=== PATIENT | male | born 1995 | race Hispanic/Latino ===

== ENCOUNTER 2016-06-02 14:44 | Emergency (ER) | payer OTHER ==
[2016-06-02] MEDS ORDERED: KETOROLAC 30 MG/ML VIAL (J1885) As Ordered ONE (19:01)
[2016-06-02] MEDS ORDERED: CLINDAMYCIN INJ 900MG/6ML VIAL As Ordered ONE (19:01)
[2016-06-02 19:15] LABS: BASO % 0.3 % (0.0-1.0); EOS # 0.1 K/mm3 (0.0-0.50); EOS % 1.4 % (0.0-3.0); LARGE UNSTAINED CELL # 0.2 K/mm3 (0.0-0.4); LARGE UNSTAINED CELL % 2.2 % (0.0-4.0); LYMPH # 1.7 K/mm3 (1.5-6.5); LYMPH % 18.6 % (24.0-44.0); MEAN CORPUSCULAR HEMOGLOBIN 32.6 pg (27.0-33.0); MEAN CORPUSCULAR HGB CONC 35.5 g/dl (32.0-36.5); MONO # 0.6 K/mm3 (0.0-0.8); MONO % 6.1 % (0.0-5.0); NEUTROPHILS # 6.5 K/mm3 (1.8-7.7); NEUTROPHILS % 71.3 % (36.0-66.0); PLATELET COUNT, AUTOMATED 224 k/mm3 (150-450); RED CELL DISTRIBUTION WIDTH 11.7 % (11.5-14.5); WHITE BLOOD COUNT 9.1 K/mm3 (4.0-10.0)
[2016-06-02 19:30] LABS: ANION GAP 6 MEQ/L (8-16); BLOOD UREA NITROGEN 8 MG/DL (7-18); CALCIUM LEVEL 9.2 MG/DL (8.5-10.1); CARBON DIOXIDE LEVEL 32 MEQ/L (21-32); CHLORIDE LEVEL 100 MEQ/L (98-107); CREATININE FOR GFR 1.12 MG/DL (0.70-1.30); GLOMERULAR FILTRATION RATE > 60.0 (>60); GLUCOSE, FASTING 108 MG/DL (70-105); POTASSIUM SERUM 3.4 MEQ/L (3.5-5.1); SODIUM LEVEL 138 MEQ/L (136-145)
[2016-06-02] MEDS ORDERED: ISOVUE-370 76% 100ML VIAL (Q9967) As Ordered ONE (19:46)
[2016-06-02 19:48] LABS: ERYTHROCYTE SEDIMENTATION RATE 44 mm/hr (0-15)
--- NOTE | 2016-06-02 21:20 | REPUSA ---
HISTORY: Left-sided swelling after wisdom tooth removal. TECHNIQUE : 100 mL Isovue 370 IV contrast was administered.. CT FACE MANDIBLE with contrast: Soft Tissues: There is diffuse soft tissue swelling of the left facial tissues extending from the lev el of the zygomatic arch to the submandibular region. There is soft tissue emphysema versus packing m aterial along the left mandibular gumline. However, there is no discrete fluid collection to suggest abscess. Nasal Bone: Intact. Sinuses and mastoids: Clear. Orbits: No retrobulbar trauma. Maxilla: There has been removal of the left and right maxillary 3rd molars. There is incidental note made of fracture of the alveolar ridge on the left. Mandible: There has been removal of the left and right mandibular 3rd molars.. IMPRESSION: Postsurgical changes of bilateral maxillary and bilateral mandibular wisdom tooth removal . Diffuse soft tissue swelling and hyperemia of the left facial tissues extending from the zygomatic arch to the submandibular region, consistent with cellulitis. No evidence of contained abscess.
--- NOTE | 2016-06-02 21:44 | EDDOCDS ---
Nurse's Notes [facility] Name: Arias Renae Age: 21 yrs Sex: Male : 1995 Arrival Date: 06/02/2016 Time: 14:44 Bed I4 / M4 Private MD: Other - Complete Info On Cds Diagnosis: Cellulitis of face-LEFT SIDED Presentation: 06/02 15:22 Presenting complaint: Patient states: had my wisdom teeth removed on Saturday, swelling [facility] went down on right side but not on left, seen in office (dr. matthews at [facility]) yesterday and they put in something supposedly to drain it and it is getting worse so I came here because that's what they said to do if it didn't get better. Adult Sepsis Screening: The patient does not have new or worsening altered mentation. Patient's respiratory rate is less than 22. Systolic blood pressure is greater than 100. Patient has a qSOFA score of 0- Negative Sepsis Screen. Suicide/Homicide risk assessment- the patient denies having any suicidal and/or homicidal ideations and does not present with any other emotional, behavioral or mental health complaints. 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 Transition of care: patient was not received from another setting of care. 15:22 Acuity: RAFAEL Level [address] [facility] 15:22 Method Of Arrival: Walkin/Carried/Asstd [facility] Triage Assessment: 15:27 General: Appears in no apparent distress, uncomfortable, Behavior is appropriate for [facility] age, cooperative, pleasant. Pain: Location: face Pain currently is 7 out of 10 on a pain scale. HIV screening NA for this visit Offered previously. active duty . Respiratory: Airway is patent Respiratory effort is even, unlabored, Respiratory pattern is regular, symmetrical. GI: Reports can't eat due to pain. Derm: Skin is pink, warm & dry. Swollen area noted on head. Historical: - Allergies: no known allergies; - Home Meds: 1. penicillin 500 mg four times a day (Last dose: 06/02/2016 12:00) 2. unknown antibiotic starts with a "D" 500 mg every 4 hours (Last dose: 06/02/2016 12:00) 3. Percocet 5-325 mg Oral tab 1 tab every 6 hours (Last dose: 06/01/2016) - PMHx: none; - PSHx: Appendectomy; - Social history: Smoking status: Patient uses tobacco products, light tobacco smoker. No barriers to communication noted. - Family history: Not pertinent. - : The pt / caregiver states he / she is not on anticoagulants. Home medication list is obtained from the patient. - Exposure Risk Screening:: None identified. Screenin:21 Screening information is obtained from the patient. Fall risk: No risks identified. kr3 Assistance ADL's: requires no assistance with activities of daily living. Abuse/DV Screen: The patient / caregiver reports he/she is: not in a situation that causes fear, pain or injury. Nutritional screening: No deficits noted. Advance Directives: Currently, there is no health care proxy. home support is adequate. Assessment: 18:20 Reassessment: Patient appears in no apparent distress at this time. Pain: Location: kr3 face. Neurological: Level of Consciousness is awake, alert. EENT: Denies difficulty swallowing. Respiratory: Respiratory effort is even, unlabored. Derm: Swollen area noted on head. 19:03 General: Appears in no apparent distress, Behavior is appropriate for age, cooperative. dsf Pain: Location: left side of face Pain currently is 6 out of 10 on a pain scale. Neurological: Level of Consciousness is awake, alert. Cardiovascular: Capillary refill < 3 seconds. Respiratory: Airway is patent Respiratory effort is even, unlabored, Respiratory pattern is regular, symmetrical. Derm: Skin is pink, warm & dry. Swollen area noted on left cheek and left jaw and under left eye. 19:12 General: Pt medicated per orders. Call chapman within reach. Will continue to monitor. ld5 19:59 General: Pt returned from CT. Pt tolerated well. Will continue to monitor. ld5 20:38 General: Appears in no apparent distress, comfortable, Behavior is appropriate for age, cjh cooperative, quiet on stretcher, IV infusing without difficulty, denies needs, awaiting results. 21:20 General: Appears in no apparent distress, comfortable, Behavior is appropriate for age, cjh cooperative, patient resting quietly, states 'feeling much better' denies needs. 21:41 General: Appears in no apparent distress, Behavior is cooperative. Neurological: Level ld5 of Consciousness is awake, alert. Respiratory: Airway is patent Respiratory effort is even, unlabored. Vital Signs: 14:47 BP 131 / 70; Pulse 90; Resp 18 S; Temp 100.4(O); Pulse Ox 97% on R/A; Weight 76.2 kg gr2 (R); Height 5 ft. 6 in. (167.64 cm) (R); Pain 8/10; 18:19 BP 151 / 78; Pulse 76; Resp 16; Pulse Ox 98% ; Pain 5/10; kr3 18:49 Temp 99.6(O); jf3 21:26 BP 125 / 66; Pulse 65; Resp 18; Temp 98.8(TE); Pulse Ox 97% on R/A; Pain 0/10; kb5 14:47 Body Mass Index 27.12 (76.20 kg, 167.64 cm) gr2 Vitals: 14:47 Log In Time: June 02, 2016 at 14:47. gr2 ED Course: 14:46 Patient visited by Mayela Forde. gr2 14:46 Other - Complete Info On Cds is Private Physician. gr2 14:46 Patient moved to Waiting gr2 14:48 Patient visited by Mayela Forde. gr2 14:48 Patient moved to Pre RCE gr2 15:24 Triage Initiated cj 18:18 Patient moved to Triage 3 sew 18:21 The patient / caregiver is instructed regarding the plan of care and ED course. Patient manuel has correct armband on for positive identification. 18:36 Roula Prince PA-C is [facility]. dt4 18:36 Alfa Zuleta MD is Attending Physician. dt4 18:36 Patient visited by Roula Prince PA-C. dt4 18:52 Patient moved to I4 / M4 kr3 19:02 CRP Sent. dsf 19:02 Sed Rate Sent. dsf 19:02 Basic Metabolic Profile Sent. dsf 19:02 CBC with Diff Sent. dsf 19:03 Patient visited by Lolita Madera RN. dsf 19:03 Inserted saline lock: 18 gauge in right antecubital area The patient tolerated the dsf procedure well. 19:12 Patient visited by Stephanie Malone,CRISTINA. ld5 19:[address] dsf 19:58 Patient moved to I4 / M4 ld5 20:00 Patient visited by Stephanie Malone,CRISTINA. ld5 20:38 Patient visited by Xin Jurado RN. [facility] 21:20 Patient visited by Xin Jurado RN. [facility] 21:26 Patient visited by Niraj Iniguez PCA. kb5 21:32 Orion Rico is Referral Physician. dt4 21:41 Discontinued lock intact, bleeding controlled, pressure dressing applied, No ld5 redness/swelling at site. No procedures done that require assistance. 21:43 Patient visited by Stephanie Malone RN. ld5 Administered Medications: 19:11 Drug: ketorolac 30 mg [ketorolac 30 mg/mL (1 mL) injection solution (1 mL)] Route: IVP; ld5 Site: right antecubital; 21:42 Follow up: Response: Pain is resolved ld5 19:11 Drug: Clindamycin 900 mg [clindamycin 150 mg/mL injection solution] Route: IVPB; ld5 Infused Over: 30 mins; Site: right antecubital; 19:59 Follow up: IV Status: Completed infusion; IV Intake: 50ml ld5 19:11 Drug: NS 0.9% 500 ml [sodium chloride 0.9 % intravenous solution] Route: IV; Rate: ld5 bolus; Site: right antecubital; 21:42 Follow up: IV Status: Completed infusion; IV Intake: 500ml ld5 Intake: 19:59 IV: 50.00ml; Total: 50.00ml. ld5 21:42 IV: 500.00ml; Total: 550.00ml. ld5 Order Results: Lab Order: CBC with Diff; SPEC'M 06/02/16 19:01 Test: WHITE BLOOD COUNT; Value: 9.1; Range: 4.0-10.0; Units: K/mm3; Status: F Test: RED BLOOD COUNT; Value: 4.51; Range: 4.30-6.10; Units: M/mm3; Status: F Test: HEMOGLOBIN; Value: 14.7; Range: 14.0-18.0; Units: g/dl; Status: F Test: HEMATOCRIT; Value: 41.4; Range: 42.0-52.0; Abnormal: Below low normal; Units: %; Status: F Test: MEAN CORPUSCULAR VOLUME; Value: 92.0; Range: 80.0-96.0; Units: fl; Status: F Test: MEAN CORPUSCULAR HEMOGLOBIN; Value: 32.6; Range: 27.0-33.0; Units: pg; Status: F Test: MEAN CORPUSCULAR HGB CONC; Value: 35.5; Range: 32.0-36.5; Units: g/dl; Status: F Test: RED CELL DISTRIBUTION WIDTH; Value: 11.7; Range: 11.5-14.5; Units: %; Status: F Test: PLATELET COUNT, AUTOMATED; Value: 224; Range: 150-450; Units: k/mm3; Status: F Test: NEUTROPHILS %; Value: 71.3; Range: 36.0-66.0; Abnormal: Above high normal; Units: %; Status: F Test: LYMPH %; Value: 18.6; Range: 24.0-44.0; Abnormal: Below low normal; Units: %; Status: F Test: MONO %; Value: 6.1; Range: 0.0-5.0; Abnormal: Above high normal; Units: %; Status: F Test: EOS %; Value: 1.4; Range: 0.0-3.0; Units: %; Status: F Test: BASO %; Value: 0.3; Range: 0.0-1.0; Units: %; Status: F Test: LARGE UNSTAINED CELL %; Value: 2.2; Range: 0.0-4.0; Units: %; Status: F Test: NEUTROPHILS #; Value: 6.5; Range: 1.8-7.7; Units: K/mm3; Status: F Test: LYMPH #; Value: 1.7; Range: 1.5-6.5; Units: K/mm3; Status: F Test: MONO #; Value: 0.6; Range: 0.0-0.8; Units: K/mm3; Status: F Test: EOS #; Value: 0.1; Range: 0.0-0.50; Units: K/mm3; Status: F Test: BASO #; Value: 0.0; Range: 0.0-0.2; Units: K/mm3; Status: F Test: LARGE UNSTAINED CELL #; Value: 0.2; Range: 0.0-0.4; Units: K/mm3; Status: F Lab Order: Basic Metabolic Profile; SPEC'M 06/02/16 19:01 Test: GLUCOSE, FASTING; Value: 108; Range: 70-105; Abnormal: Above high normal; Units: MG/DL; Status: F Test: BLOOD UREA NITROGEN; Value: 8; Range: 7-18; Units: MG/DL; Status: F Test: CREATININE FOR GFR; Value: 1.12; Range: 0.70-1.30; Units: MG/DL; Status: F Test: GLOMERULAR FILTRATION RATE; Value: > 60.0; Range: >60; Status: F Test: SODIUM LEVEL; Value: 138; Range: 136-145; Units: MEQ/L; Status: F Test: POTASSIUM SERUM; Value: 3.4; Range: 3.5-5.1; Abnormal: Below low normal; Units: MEQ/L; Status: F Test: CHLORIDE LEVEL; Value: 100; Range: 98-107; Units: MEQ/L; Status: F Test: CARBON DIOXIDE LEVEL; Value: 32; Range: 21-32; Units: MEQ/L; Status: F Test: ANION GAP; Value: 6; Range: 8-16; Abnormal: Below low normal; Units: MEQ/L; Status: F Test: CALCIUM LEVEL; Value: 9.2; Range: 8.5-10.1; Units: MG/DL; Status: F Test Note: ; Units are mL/min/1.73 m2 Chronic Kidney Disease Staging per NKF: Stage I & II GFR >=60 Normal to Mildly Decreased Stage III GFR 30-59 Moderately Decreased Stage IV GFR 15-29 Severely Decreased Stage V GFR <15 Very Little GFR Left ESRD GFR <15 on ELDERLY CAREGIVER Lab Order: Sed Rate; SPEC'M 06/02/16 19:01 Test: ERYTHROCYTE SEDIMENTATION RATE; Value: 44; Range: 0-15; Abnormal: Above high normal; Units: mm/hr; Status: F Lab Order: CRP; SPEC'M 06/02/16 19:01 Test: C REACTIVE PROTEIN QUANTITATIV; Value: 5.95; Range: 0.00-0.30; Abnormal: Above high normal; Units: MG/DL; Status: F Outcome: 21:33 Discharge ordered by Provider. dt 21:41 Discharge Assessment: Patient awake, alert and oriented x 3. No cognitive and/or ld5 functional deficits noted. Patient verbalized understanding of disposition instructions. patient administered narcotics - no. The following High Risk Discharge criteria are identified: None. Discharged to home ambulatory. Condition: stable. Discharge instructions given to patient, Instructed on discharge instructions, follow up and referral plans. medication usage, no driving heavy equipment, Demonstrated understanding of instructions, medications, Pt was receptive of discharge instructions/ teaching. Prescriptions given X 2. CT Study completed. Property :Personal belongings accompany Pt. 21:43 Patient left the ED. ld5 Signatures: Damaris Weems,RN RN kr3 Niraj Iniguez, MARKETING PROGRAM MANAGER MARKETING PROGRAM MANAGER kb5 Stephanie MaloneRN RN ld5 Lolita Madera,RN RN Xin Hawley,RN RN [facility] Aaliyah Dsouza Gainslee gr2 Roula Prince PA-C PASaadia dt4 Jean Keys,RN RN jf3 MTDThomas
--- NOTE | 2016-06-02 21:44 | EDDOCDS ---
Physician Documentation [facility] Name: Arias Renae Age: 21 yrs Sex: Male : 1995 Arrival Date: 06/02/2016 Time: 14:44 Bed I4 / M4 Private MD: Other - Complete Info On Cds Disposition: 06/02/16 21:33 Discharged to Home/Self Care. Impression: Cellulitis of face - LEFT SIDED. - Condition is Stable. - Discharge Instructions: Cellulitis. - Prescriptions for Clindamycin HCl 300 mg Oral Capsule - take 1 capsule by ORAL route every 6 hours; 40 capsule. [place] 5- 325 mg Oral Tablet - take 1 tablet by ORAL route every 6 hours As needed MDD: 4 tabs; 15 tablet. - Medication Reconciliation, Local Pharmacy Hours form. - Follow up: Emergency Department; When: As needed; Reason: Worsening of conditions. Follow up: Orion Rico; When: Call to arrange an appointment; Reason: Wound/Symptom Recheck, Recheck today's complaints, Continuance of care. - Problem is new. - Symptoms have improved. Historical: - Allergies: no known allergies; - Home Meds: 1. penicillin 500 mg four times a day (Last dose: 06/02/2016 12:00) 2. unknown antibiotic starts with a "D" 500 mg every 4 hours (Last dose: 06/02/2016 12:00) 3. Percocet 5-325 mg Oral tab 1 tab every 6 hours (Last dose: 06/01/2016) - PMHx: none; - PSHx: Appendectomy; - Social history: Smoking status: Patient uses tobacco products, light tobacco smoker. No barriers to communication noted. - Family history: Not pertinent. - : The pt / caregiver states he / she is not on anticoagulants. Home medication list is obtained from the patient. - Exposure Risk Screening:: None identified. Vital Signs: 06/02 14:47 BP 131 / 70; Pulse 90; Resp 18 S; Temp 100.4(O); Pulse Ox 97% on R/A; Weight 76.2 kg / gr2 167.99 lbs (R); Height 5 ft. 6 in. (167.64 cm) (R); Pain 8/10; 18:19 BP 151 / 78; Pulse 76; Resp 16; Pulse Ox 98% ; Pain 5/10; kr3 18:49 Temp 99.6(O); jf3 21:26 BP 125 / 66; Pulse 65; Resp 18; Temp 98.8(TE); Pulse Ox 97% on R/A; Pain 0/10; kb5 14:47 Body Mass Index 27.12 (76.20 kg, 167.64 cm) gr2 MDM: 18:54 IV Saline Lock ordered. dt4 18:54 ketorolac 30 mg IVP once ordered. dt4 18:54 Clindamycin 900 mg IVPB once over 30 mins; dilute in 50mL of NS or D5W ordered. dt4 18:54 NS 0.9% 500 ml IV at bolus once ordered. dt4 18:55 CT Maxillofacial with contrast Ordered. EDMS 18:55 CBC with Diff Ordered. EDMS 18:55 Basic Metabolic Profile Ordered. EDMS 18:55 Sed Rate Ordered. EDMS 18:55 CRP Ordered. EDMS Administered Medications: 19:11 Drug: ketorolac 30 mg [ketorolac 30 mg/mL (1 mL) injection solution (1 mL)] Route: IVP; ld5 Site: right antecubital; 21:42 Follow up: Response: Pain is resolved ld5 19:11 Drug: Clindamycin 900 mg [clindamycin 150 mg/mL injection solution] Route: IVPB; ld5 Infused Over: 30 mins; Site: right antecubital; 19:59 Follow up: IV Status: Completed infusion; IV Intake: 50ml ld5 19:11 Drug: NS 0.9% 500 ml [sodium chloride 0.9 % intravenous solution] Route: IV; Rate: ld5 bolus; Site: right antecubital; 21:42 Follow up: IV Status: Completed infusion; IV Intake: 500ml ld5 Signatures: Dispatcher [employer] EDMS Stephanie Malone RN RN ld5 Xin Jurado RN RN [facility] Roula Prince PA-C PA-C dt4 MTDD
--- NOTE | 2016-06-04 22:43 | EDDOCDS ---
Physician Documentation [facility] Name: Arias Renae Age: 21 yrs Sex: Male : 1995 Arrival Date: 06/02/2016 Time: 14:44 Bed I4 / M4 Private MD: Other - Complete Info On Cds Disposition: 06/02/16 21:33 Discharged to Home/Self Care. Impression: Cellulitis of face - LEFT SIDED. - Condition is Stable. - Discharge Instructions: Cellulitis. - Prescriptions for Clindamycin HCl 300 mg Oral Capsule - take 1 capsule by ORAL route every 6 hours; 40 capsule. [place] 5- 325 mg Oral Tablet - take 1 tablet by ORAL route every 6 hours As needed MDD: 4 tabs; 15 tablet. - Medication Reconciliation, Local Pharmacy Hours form. - Follow up: Emergency Department; When: As needed; Reason: Worsening of conditions. Follow up: Orion Rico; When: Call to arrange an appointment; Reason: Wound/Symptom Recheck, Recheck today's complaints, Continuance of care. - Problem is new. - Symptoms have improved. Historical: - Allergies: no known allergies; - Home Meds: 1. penicillin 500 mg four times a day (Last dose: 06/02/2016 12:00) 2. unknown antibiotic starts with a "D" 500 mg every 4 hours (Last dose: 06/02/2016 12:00) 3. Percocet 5-325 mg Oral tab 1 tab every 6 hours (Last dose: 06/01/2016) - PMHx: none; - PSHx: Appendectomy; - Social history: Smoking status: Patient uses tobacco products, light tobacco smoker. No barriers to communication noted. - Family history: Not pertinent. - : The pt / caregiver states he / she is not on anticoagulants. Home medication list is obtained from the patient. - Exposure Risk Screening:: None identified. Vital Signs: 06/02 14:47 BP 131 / 70; Pulse 90; Resp 18 S; Temp 100.4(O); Pulse Ox 97% on R/A; Weight 76.2 kg / gr2 167.99 lbs (R); Height 5 ft. 6 in. (167.64 cm) (R); Pain 8/10; 18:19 BP 151 / 78; Pulse 76; Resp 16; Pulse Ox 98% ; Pain 5/10; kr3 18:49 Temp 99.6(O); jf3 21:26 BP 125 / 66; Pulse 65; Resp 18; Temp 98.8(TE); Pulse Ox 97% on R/A; Pain 0/10; kb5 14:47 Body Mass Index 27.12 (76.20 kg, 167.64 cm) gr2 MDM: 18:54 IV Saline Lock ordered. dt4 18:54 ketorolac 30 mg IVP once ordered. dt4 18:54 Clindamycin 900 mg IVPB once over 30 mins; dilute in 50mL of NS or D5W ordered. dt4 18:54 NS 0.9% 500 ml IV at bolus once ordered. dt4 18:55 CT Maxillofacial with contrast Ordered. EDMS 18:55 CBC with Diff Ordered. EDMS 18:55 Basic Metabolic Profile Ordered. EDMS 18:55 Sed Rate Ordered. EDMS 18:55 CRP Ordered. EDMS 21:49 [place] [place] was scanned into [employer] and attached to record. [facility] 21:49 Financial registration complete. gjb 06/03 15:38 Radiology Report was scanned into [employer] and attached to record. kf3 16:18 Radiology Report was scanned into [employer] and attached to record. kf3 17:01 T-Sheet-- Draft Copy was scanned into [employer] and attached to record. klr Administered Medications: 06/02 19:11 Drug: ketorolac 30 mg [ketorolac 30 mg/mL (1 mL) injection solution (1 mL)] Route: IVP; ld5 Site: right antecubital; 21:42 Follow up: Response: Pain is resolved ld5 19:11 Drug: Clindamycin 900 mg [clindamycin 150 mg/mL injection solution] Route: IVPB; ld5 Infused Over: 30 mins; Site: right antecubital; 19:59 Follow up: IV Status: Completed infusion; IV Intake: 50ml ld5 19:11 Drug: NS 0.9% 500 ml [sodium chloride 0.9 % intravenous solution] Route: IV; Rate: ld5 bolus; Site: right antecubital; 21:42 Follow up: IV Status: Completed infusion; IV Intake: 500ml ld5 Signatures: Dispatcher Med[employer] EDMS Cameron Fontenot, Reg Reg kf3 Stephanie Malone,RN RN ld5 Xin JuradoRN RN [facility] Roula Prince PA-C PASaadia dt4 Angelica Stallings Kathie klr The chart was reviewed and I authenticate all verbal orders and agree with the evaluation and treatment provided.Attachments: 21:49 [facility] Payment Agreement latasha 17:01 T-Sheet-- Draft Copy klr Chart Complete MTDD
--- NOTE | 2016-06-04 22:43 | EDDOCDS ---
Physician Documentation [facility] Name: Arias Renae Age: 21 yrs Sex: Male : 1995 Arrival Date: 06/02/2016 Time: 14:44 Bed I4 / M4 Private MD: Other - Complete Info On Cds Disposition: 06/02/16 21:33 Discharged to Home/Self Care. Impression: Cellulitis of face - LEFT SIDED. - Condition is Stable. - Discharge Instructions: Cellulitis. - Prescriptions for Clindamycin HCl 300 mg Oral Capsule - take 1 capsule by ORAL route every 6 hours; 40 capsule. [place] 5- 325 mg Oral Tablet - take 1 tablet by ORAL route every 6 hours As needed MDD: 4 tabs; 15 tablet. - Medication Reconciliation, Local Pharmacy Hours form. - Follow up: Emergency Department; When: As needed; Reason: Worsening of conditions. Follow up: Orion Rico; When: Call to arrange an appointment; Reason: Wound/Symptom Recheck, Recheck today's complaints, Continuance of care. - Problem is new. - Symptoms have improved. Historical: - Allergies: no known allergies; - Home Meds: 1. penicillin 500 mg four times a day (Last dose: 06/02/2016 12:00) 2. unknown antibiotic starts with a "D" 500 mg every 4 hours (Last dose: 06/02/2016 12:00) 3. Percocet 5-325 mg Oral tab 1 tab every 6 hours (Last dose: 06/01/2016) - PMHx: none; - PSHx: Appendectomy; - Social history: Smoking status: Patient uses tobacco products, light tobacco smoker. No barriers to communication noted. - Family history: Not pertinent. - : The pt / caregiver states he / she is not on anticoagulants. Home medication list is obtained from the patient. - Exposure Risk Screening:: None identified. Vital Signs: 06/02 14:47 BP 131 / 70; Pulse 90; Resp 18 S; Temp 100.4(O); Pulse Ox 97% on R/A; Weight 76.2 kg / gr2 167.99 lbs (R); Height 5 ft. 6 in. (167.64 cm) (R); Pain 8/10; 18:19 BP 151 / 78; Pulse 76; Resp 16; Pulse Ox 98% ; Pain 5/10; kr3 18:49 Temp 99.6(O); jf3 21:26 BP 125 / 66; Pulse 65; Resp 18; Temp 98.8(TE); Pulse Ox 97% on R/A; Pain 0/10; kb5 14:47 Body Mass Index 27.12 (76.20 kg, 167.64 cm) gr2 MDM: 18:54 IV Saline Lock ordered. dt4 18:54 ketorolac 30 mg IVP once ordered. dt4 18:54 Clindamycin 900 mg IVPB once over 30 mins; dilute in 50mL of NS or D5W ordered. dt4 18:54 NS 0.9% 500 ml IV at bolus once ordered. dt4 18:55 CT Maxillofacial with contrast Ordered. EDMS 18:55 CBC with Diff Ordered. EDMS 18:55 Basic Metabolic Profile Ordered. EDMS 18:55 Sed Rate Ordered. EDMS 18:55 CRP Ordered. EDMS 21:49 [facility] [place] Payment Agreement was scanned into [employer] and attached to record. [facility] 21:49 Financial registration complete. gjb 06/03 15:38 Radiology Report was scanned into [employer] and attached to record. kf3 16:18 Radiology Report was scanned into [employer] and attached to record. kf3 17:01 T-Sheet-- Draft Copy was scanned into [employer] and attached to record. klr Administered Medications: 06/02 19:11 Drug: ketorolac 30 mg [ketorolac 30 mg/mL (1 mL) injection solution (1 mL)] Route: IVP; ld5 Site: right antecubital; 21:42 Follow up: Response: Pain is resolved ld5 19:11 Drug: Clindamycin 900 mg [clindamycin 150 mg/mL injection solution] Route: IVPB; ld5 Infused Over: 30 mins; Site: right antecubital; 19:59 Follow up: IV Status: Completed infusion; IV Intake: 50ml ld5 19:11 Drug: NS 0.9% 500 ml [sodium chloride 0.9 % intravenous solution] Route: IV; Rate: ld5 bolus; Site: right antecubital; 21:42 Follow up: IV Status: Completed infusion; IV Intake: 500ml ld5 Signatures: Dispatcher [employer] EDMS Cameron Fontenot, Reg Reg kf3 Stephanie Mlaone,RN RN ld5 Xin JuradoRN RN [facility] Roula Prince PA-C PASaadia dt4 Angelica Stallings Kathie klr The chart was reviewed and I authenticate all verbal orders and agree with the evaluation and treatment provided.Attachments: 21:49 [facility] Payment Agreement latasha 17:01 T-Sheet-- Draft Copy klr Chart Complete MTDD
--- NOTE | 2016-06-04 22:43 | EDDOCDS ---
Nurse's Notes [facility] Name: Arias Renae Age: 21 yrs Sex: Male : 1995 Arrival Date: 06/02/2016 Time: 14:44 Bed I4 / M4 Private MD: Other - Complete Info On Cds Diagnosis: Cellulitis of face-LEFT SIDED Presentation: 06/02 15:22 Presenting complaint: Patient states: had my wisdom teeth removed on Saturday, swelling [facility] went down on right side but not on left, seen in office (dr. matthews at [facility]) yesterday and they put in something supposedly to drain it and it is getting worse so I came here because that's what they said to do if it didn't get better. Adult Sepsis Screening: The patient does not have new or worsening altered mentation. Patient's respiratory rate is less than 22. Systolic blood pressure is greater than 100. Patient has a qSOFA score of 0- Negative Sepsis Screen. Suicide/Homicide risk assessment- the patient denies having any suicidal and/or homicidal ideations and does not present with any other emotional, behavioral or mental health complaints. 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 Transition of care: patient was not received from another setting of care. 15:22 Acuity: RAFAEL Level 3 [facility] 15:22 Method Of Arrival: Walkin/Carried/Asstd [facility] Triage Assessment: 15:27 General: Appears in no apparent distress, uncomfortable, Behavior is appropriate for [facility] age, cooperative, pleasant. Pain: Location: face Pain currently is 7 out of 10 on a pain scale. HIV screening NA for this visit Offered previously. active duty . Respiratory: Airway is patent Respiratory effort is even, unlabored, Respiratory pattern is regular, symmetrical. GI: Reports can't eat due to pain. Derm: Skin is pink, warm & dry. Swollen area noted on head. Historical: - Allergies: no known allergies; - Home Meds: 1. penicillin 500 mg four times a day (Last dose: 06/02/2016 12:00) 2. unknown antibiotic starts with a "D" 500 mg every 4 hours (Last dose: 06/02/2016 12:00) 3. Percocet 5-325 mg Oral tab 1 tab every 6 hours (Last dose: 06/01/2016) - PMHx: none; - PSHx: Appendectomy; - Social history: Smoking status: Patient uses tobacco products, light tobacco smoker. No barriers to communication noted. - Family history: Not pertinent. - : The pt / caregiver states he / she is not on anticoagulants. Home medication list is obtained from the patient. - Exposure Risk Screening:: None identified. Screenin:21 Screening information is obtained from the patient. Fall risk: No risks identified. kr3 Assistance ADL's: requires no assistance with activities of daily living. Abuse/DV Screen: The patient / caregiver reports he/she is: not in a situation that causes fear, pain or injury. Nutritional screening: No deficits noted. Advance Directives: Currently, there is no health care proxy. home support is adequate. Assessment: 18:20 Reassessment: Patient appears in no apparent distress at this time. Pain: Location: kr3 face. Neurological: Level of Consciousness is awake, alert. EENT: Denies difficulty swallowing. Respiratory: Respiratory effort is even, unlabored. Derm: Swollen area noted on head. 19:03 General: Appears in no apparent distress, Behavior is appropriate for age, cooperative. dsf Pain: Location: left side of face Pain currently is 6 out of 10 on a pain scale. Neurological: Level of Consciousness is awake, alert. Cardiovascular: Capillary refill < 3 seconds. Respiratory: Airway is patent Respiratory effort is even, unlabored, Respiratory pattern is regular, symmetrical. Derm: Skin is pink, warm & dry. Swollen area noted on left cheek and left jaw and under left eye. 19:12 General: Pt medicated per orders. Call chapman within reach. Will continue to monitor. ld5 19:59 General: Pt returned from CT. Pt tolerated well. Will continue to monitor. ld5 20:38 General: Appears in no apparent distress, comfortable, Behavior is appropriate for age, cjh cooperative, quiet on stretcher, IV infusing without difficulty, denies needs, awaiting results. 21:20 General: Appears in no apparent distress, comfortable, Behavior is appropriate for age, cjh cooperative, patient resting quietly, states 'feeling much better' denies needs. 21:41 General: Appears in no apparent distress, Behavior is cooperative. Neurological: Level ld5 of Consciousness is awake, alert. Respiratory: Airway is patent Respiratory effort is even, unlabored. Vital Signs: 14:47 BP 131 / 70; Pulse 90; Resp 18 S; Temp 100.4(O); Pulse Ox 97% on R/A; Weight 76.2 kg gr2 (R); Height 5 ft. 6 in. (167.64 cm) (R); Pain 8/10; 18:19 BP 151 / 78; Pulse 76; Resp 16; Pulse Ox 98% ; Pain 5/10; kr3 18:49 Temp 99.6(O); jf3 21:26 BP 125 / 66; Pulse 65; Resp 18; Temp 98.8(TE); Pulse Ox 97% on R/A; Pain 0/10; kb5 14:47 Body Mass Index 27.12 (76.20 kg, 167.64 cm) gr2 Vitals: 14:47 Log In Time: June 02, 2016 at 14:47. gr2 ED Course: 14:46 Patient visited by Mayela Forde. gr2 14:46 Other - Complete Info On Cds is Private Physician. gr2 14:46 Patient moved to Waiting gr2 14:48 Patient visited by Mayela Forde. gr2 14:48 Patient moved to Pre RCE gr2 15:24 Triage Initiated cj 18:18 Patient moved to Triage 3 sew 18:21 The patient / caregiver is instructed regarding the plan of care and ED course. Patient manuel has correct armband on for positive identification. 18:36 [facility] dt4 18:36 Alfa Zuleta MD is Attending Physician. dt4 18:36 Patient visited by Roula Prince PA-C. dt4 18:52 Patient moved to I4 / M4 kr3 19:02 CRP Sent. dsf 19:02 Sed Rate Sent. dsf 19:02 Basic Metabolic Profile Sent. dsf 19:02 CBC with Diff Sent. dsf 19:03 Patient visited by Lolita Madera RN. dsf 19:03 Inserted saline lock: 18 gauge in right antecubital area The patient tolerated the dsf procedure well. 19:12 Patient visited by Stephanie Malone,CRISTINA. ld5 19:[address] dsf 19:58 Patient moved to I4 / M4 ld5 20:00 Patient visited by Stephanie Malone,RN. ld5 20:38 Patient visited by Xin Jurado RN. [facility] 21:20 Patient visited by Xin Jurado RN. [facility] 21:26 Patient visited by Niraj Iniguez PCA. kb5 21:32 Orion Rico is Referral Physician. dt4 21:41 Discontinued lock intact, bleeding controlled, pressure dressing applied, No ld5 redness/swelling at site. No procedures done that require assistance. 21:43 Patient visited by Stephanie Malone RN. ld5 21:49 [facility] Payment Agreement was scanned into [employer] and attached to record. gjb 22:02 CT Maxillofacial with contrast Returned. EDMS 22:06 Patient name changed from Arias\\S\\M\\S\\Renae\\S\\ to Arias\\S\\ \\S\\Renae. EDMS 06/03 15:38 Radiology Report was scanned into [employer] and attached to record. kf3 16:18 Radiology Report was scanned into [employer] and attached to record. kf3 17:01 T-Sheet-- Draft Copy was scanned into [employer] and attached to record. klr Administered Medications: 06/02 19:11 Drug: ketorolac 30 mg [ketorolac 30 mg/mL (1 mL) injection solution (1 mL)] Route: IVP; ld5 Site: right antecubital; 21:42 Follow up: Response: Pain is resolved ld5 19:11 Drug: Clindamycin 900 mg [clindamycin 150 mg/mL injection solution] Route: IVPB; ld5 Infused Over: 30 mins; Site: right antecubital; 19:59 Follow up: IV Status: Completed infusion; IV Intake: 50ml ld5 19:11 Drug: NS 0.9% 500 ml [sodium chloride 0.9 % intravenous solution] Route: IV; Rate: ld5 bolus; Site: right antecubital; 21:42 Follow up: IV Status: Completed infusion; IV Intake: 500ml ld5 Intake: 19:59 IV: 50.00ml; Total: 50.00ml. ld5 21:42 IV: 500.00ml; Total: 550.00ml. ld5 Order Results: Lab Order: CBC with Diff; SPEC'M 06/02/16 19:01 Test: WHITE BLOOD COUNT; Value: 9.1; Range: 4.0-10.0; Units: K/mm3; Status: F Test: RED BLOOD COUNT; Value: 4.51; Range: 4.30-6.10; Units: M/mm3; Status: F Test: HEMOGLOBIN; Value: 14.7; Range: 14.0-18.0; Units: g/dl; Status: F Test: HEMATOCRIT; Value: 41.4; Range: 42.0-52.0; Abnormal: Below low normal; Units: %; Status: F Test: MEAN CORPUSCULAR VOLUME; Value: 92.0; Range: 80.0-96.0; Units: fl; Status: F Test: MEAN CORPUSCULAR HEMOGLOBIN; Value: 32.6; Range: 27.0-33.0; Units: pg; Status: F Test: MEAN CORPUSCULAR HGB CONC; Value: 35.5; Range: 32.0-36.5; Units: g/dl; Status: F Test: RED CELL DISTRIBUTION WIDTH; Value: 11.7; Range: 11.5-14.5; Units: %; Status: F Test: PLATELET COUNT, AUTOMATED; Value: 224; Range: 150-450; Units: k/mm3; Status: F Test: NEUTROPHILS %; Value: 71.3; Range: 36.0-66.0; Abnormal: Above high normal; Units: %; Status: F Test: LYMPH %; Value: 18.6; Range: 24.0-44.0; Abnormal: Below low normal; Units: %; Status: F Test: MONO %; Value: 6.1; Range: 0.0-5.0; Abnormal: Above high normal; Units: %; Status: F Test: EOS %; Value: 1.4; Range: 0.0-3.0; Units: %; Status: F Test: BASO %; Value: 0.3; Range: 0.0-1.0; Units: %; Status: F Test: LARGE UNSTAINED CELL %; Value: 2.2; Range: 0.0-4.0; Units: %; Status: F Test: NEUTROPHILS #; Value: 6.5; Range: 1.8-7.7; Units: K/mm3; Status: F Test: LYMPH #; Value: 1.7; Range: 1.5-6.5; Units: K/mm3; Status: F Test: MONO #; Value: 0.6; Range: 0.0-0.8; Units: K/mm3; Status: F Test: EOS #; Value: 0.1; Range: 0.0-0.50; Units: K/mm3; Status: F Test: BASO #; Value: 0.0; Range: 0.0-0.2; Units: K/mm3; Status: F Test: LARGE UNSTAINED CELL #; Value: 0.2; Range: 0.0-0.4; Units: K/mm3; Status: F Lab Order: Basic Metabolic Profile; SPEC'M 06/02/16 19:01 Test: GLUCOSE, FASTING; Value: 108; Range: 70-105; Abnormal: Above high normal; Units: MG/DL; Status: F Test: BLOOD UREA NITROGEN; Value: 8; Range: 7-18; Units: MG/DL; Status: F Test: CREATININE FOR GFR; Value: 1.12; Range: 0.70-1.30; Units: MG/DL; Status: F Test: GLOMERULAR FILTRATION RATE; Value: > 60.0; Range: >60; Status: F Test: SODIUM LEVEL; Value: 138; Range: 136-145; Units: MEQ/L; Status: F Test: POTASSIUM SERUM; Value: 3.4; Range: 3.5-5.1; Abnormal: Below low normal; Units: MEQ/L; Status: F Test: CHLORIDE LEVEL; Value: 100; Range: 98-107; Units: MEQ/L; Status: F Test: CARBON DIOXIDE LEVEL; Value: 32; Range: 21-32; Units: MEQ/L; Status: F Test: ANION GAP; Value: 6; Range: 8-16; Abnormal: Below low normal; Units: MEQ/L; Status: F Test: CALCIUM LEVEL; Value: 9.2; Range: 8.5-10.1; Units: MG/DL; Status: F Test Note: ; Units are mL/min/1.73 m2 Chronic Kidney Disease Staging per NKF: Stage I & II GFR >=60 Normal to Mildly Decreased Stage III GFR 30-59 Moderately Decreased Stage IV GFR 15-29 Severely Decreased Stage V GFR <15 Very Little GFR Left ESRD GFR <15 on EPIDEMIOLOGIST Lab Order: Sed Rate; SPEC'M 06/02/16 19:01 Test: ERYTHROCYTE SEDIMENTATION RATE; Value: 44; Range: 0-15; Abnormal: Above high normal; Units: mm/hr; Status: F Lab Order: CRP; SPEC'M 06/02/16 19:01 Test: C REACTIVE PROTEIN QUANTITATIV; Value: 5.95; Range: 0.00-0.30; Abnormal: Above high normal; Units: MG/DL; Status: F Radiology Order: CT Maxillofacial with contrast Test: CT Maxillofacial with contrast REASON FOR EXAMINATION: left sided facial swelling s/p wisdom tooth removal; ; HISTORY: Left-sided swelling after wisdom tooth removal.; TECHNIQUE : 100 mL Isovue 370 IV contrast was administered..; CT FACE MANDIBLE with contrast:; ; Soft Tissues: There is diffuse soft tissue swelling of the left facial tissues extending from the lev; el of the zygomatic arch to the submandibular region. There is soft tissue emphysema versus packing m; aterial along the left mandibular gumline. However, there is no discrete fluid collection to suggest; abscess.; Nasal Bone: Intact.; Sinuses and mastoids: Clear.; Orbits: No retrobulbar trauma.; Maxilla: There has been removal of the left and right maxillary 3rd molars. There is incidental note; made of fracture of the alveolar ridge on the left.; Mandible: There has been removal of the left and right mandibular 3rd molars..; ; IMPRESSION: Postsurgical changes of bilateral maxillary and bilateral mandibular wisdom tooth removal; . Diffuse soft tissue swelling and hyperemia of the left facial tissues extending from the zygomatic; arch to the submandibular region, consistent with cellulitis. No evidence of contained abscess.; ; Outcome: 21:33 Discharge ordered by Provider. dt4 21:41 Discharge Assessment: Patient awake, alert and oriented x 3. No cognitive and/or ld5 functional deficits noted. Patient verbalized understanding of disposition instructions. patient administered narcotics - no. The following High Risk Discharge criteria are identified: None. Discharged to home ambulatory. Condition: stable. Discharge instructions given to patient, Instructed on discharge instructions, follow up and referral plans. medication usage, no driving heavy equipment, Demonstrated understanding of instructions, medications, Pt was receptive of discharge instructions/ teaching. Prescriptions given X 2. CT Study completed. Property :Personal belongings accompany Pt. 21:43 Patient left the ED. ld5 Signatures: Dispatcher [employer] EDMS Damaris Weems,RN RN kr3 Niraj Iniguez, [employer] kb5 Cameron Fontenot, Reg Reg kf3 Stephanie Malone,RN RN ld5 Lolita MaderaRN RN Xin HawleyRN RN [facility] Aaliyah Dsouza Gainslee 2 Roula Prince PA-C PA-C dt4 Jean KeysRN RN james3 Angelica Stallings Kathie klr Chart Complete MTDThomas
== END 2016-06-02 21:43 | disposition home or self-care (01) ==
LOC: M ED 14:44
DX: L03.211 Cellulitis of face (principal); F17.210 Nicotine dependence, cigarettes, uncomplicated
CPT/HCPCS: 70487; 80048; 85025; 85652; 86140; 96361; 96365; 96375; 99284; J1885; Q9967

== ENCOUNTER 2016-10-15 17:34 | Emergency (ER) | payer OTHER ==
[~2016-10-15] VITALS: Ht 170.2 cm; Wt 78.5 kg
[2016-10-15 17:35] VITALS: BP 146/82
[2016-10-15] MEDS ORDERED: FLUORESCEIN OPHTH 1 MG STRIP OU ONE (18:15)
[2016-10-15] MEDS ORDERED: TETRACAINE 0.5% OPHTH SOLN 4ML OU ONE (18:15)
--- NOTE | 2016-10-15 20:50 | REPUSA ---
MRA of the brain. Clinical history: vision loss. Technique: [id number] MRA images of the brain were obtained without administration of contrast. 3 -D MIP images were also obtained. Findings: The vascular structures extending from the distal carotid and vertebrobasilar arterial syst ems, through the [place] of [place], demonstrate normal caliber and contour. There is no evidence of an eurysm, stenosis, or thrombosis. Impression: Unremarkable MRA examination of the brain.
--- NOTE | 2016-10-15 20:50 | REPUSA ---
MRI of the brain Clinical history: vision loss to the right eye. Technique: Multiecho multiplanar MRI images of the brain were obtained before and after administratio n of intravenous gadolinium contrast. Diffusion weighted images with ADC mapping was also obtained. Findings: The ventricles and sulci are symmetric bilaterally. The brain parenchyma demonstrates uniform and nor mal signal on all sequences. There is no midline shift, mass effect, or extra-axial fluid collection. The midline intracranial structures do not demonstrate any gross abnormalities. The cervical cranial junction is intact. The orbits are unremarkable. The visualized paranasal sinuses and mastoid air ce lls are clear. The osseous structures and superficial soft tissues are unremarkable. The vascular str uctures demonstrate appropriate flow voids. The vascular structures enhancing appropriately. No abnor mal enhancing masses are appreciated. Impression: Normal MRI of the Brain.
== END 2016-10-15 21:51 | disposition home or self-care (01) ==
LOC: M ED 18:23
DX: H53.9 Unspecified visual disturbance (principal)
CPT/HCPCS: 70544; 70553; 99283; A9576

== ENCOUNTER → 2018-02-25 | Outpatient (CLI) | payer OTHER | LOC: M RAD 09:41 | DX: M79.661 Pain in right lower leg (principal); M79.662 Pain in left lower leg | CPT/HCPCS: 78315 ==